=== PATIENT | male | born 1975 | race Caucasian/White ===

== ENCOUNTER 2017-12-11 22:46 | Emergency (ER) | payer BC ==
[~2017-12-11] VITALS: Ht 177.8 cm; Wt 115.2 kg
[2017-12-11 23:03] VITALS: BP_SYST 135
[2017-12-12] MEDS ORDERED: IBUPROFEN 800 MG TABLET PO ONE (00:30)
[2017-12-12 00:55] VITALS: BP_SYST 132
== END 2017-12-12 00:55 | disposition home or self-care (01) ==
LOC: SED 22:46
DX: J03.90 Acute tonsillitis, unspecified (principal); R10.84 Generalized abdominal pain; M79.1 Myalgia; R03.0 Elevated blood-pressure reading, without diagnosis of hypertension; Z91.041 Radiographic dye allergy status; Z91.013 Allergy to seafood
CPT/HCPCS: 36415; 86403; 87081; 99284